=== PATIENT | male | born 1950 | race Caucasian/White ===

== ENCOUNTER 2017-07-31 16:04 | Emergency (ER) | payer MEDICARE, OTHER ==
[2017-07-31 16:21] VITALS: BP 165/81
[2017-07-31] MEDS ORDERED: METFORMIN HYD1000 MG PO (16:28)
[2017-07-31] MEDS ORDERED: GLUCOPHAGE PO (16:28)
[2017-07-31] MEDS ORDERED: LOSARTAN POTASS1 TA2 PO (16:29)
[2017-07-31] MEDS ORDERED: ATORVASTATIN CA20 MG PO (16:29)
[2017-07-31] MEDS ORDERED: ACETAMINOPHEN-H1 TA2 PO (16:30)
[2017-07-31] MEDS ORDERED: NAPROSYN500 M1 PO (16:30)
[2017-07-31] MEDS ORDERED: NAPROXEN500 MG PO (17:40)
== END 2017-07-31 17:50 | disposition home or self-care (01) ==
LOC: ED 16:04
DX: S92.322A Displaced fracture of second metatarsal bone, left foot, initial encounter for closed fracture (principal); S92.352A Displaced fracture of fifth metatarsal bone, left foot, initial encounter for closed fracture; W05.0XXA Fall from non-moving wheelchair, initial encounter; Y92.009 Unspecified place in unspecified non-institutional (private) residence as the place of occurrence of the external cause; G82.20 Paraplegia, unspecified; S24.102S Unspecified injury at T2-T6 level of thoracic spinal cord, sequela; Z99.3 Dependence on wheelchair; V29.9XXS Motorcycle rider (driver) (passenger) injured in unspecified traffic accident, sequela

== ENCOUNTER → 2021-01-31 | Outpatient (CLI) | payer MEDICARE ==
[~2021-01-31] MED LIST: ACETAMINOPHEN-H1 TA2 PO; ATORVASTATIN CA20 MG PO; GLUCOPHAGE PO; LOSARTAN POTASS1 TA2 PO; METFORMIN HYD1000 MG PO; NAPROSYN500 M1 PO; NAPROXEN500 MG PO
== END ==
LOC: RAD 01-30 08:30
DX: D64.9 Anemia, unspecified (principal); I74.5 Embolism and thrombosis of iliac artery; N40.0 Benign prostatic hyperplasia without lower urinary tract symptoms; S72.001A Fracture of unspecified part of neck of right femur, initial encounter for closed fracture; L89.899 Pressure ulcer of other site, unspecified stage
CPT/HCPCS: Q9967

== ENCOUNTER → 2021-02-10 | Outpatient (CLI) | payer MEDICARE ==
[2021-02-10 13:50] LABS: BASO # 0.02 (0.02-0.10); EOS # 0.41 (0.04-0.40); EOS % 3.8 % (0.0-4.0); HEMATOCRIT 31.8 % (42.0-52.0); HEMOGLOBIN 9.7 g/dL (13.5-18.0); LYMPH# 1.81 (1.50-4.00); MEAN CELL VOLUME 84 fl (78-100); MEAN CORPUSCULAR HEMOGLOBIN 26 pg (27-31); MEAN CORPUSCULAR HGB CONC 31 g/dL (33-37); MEAN PLATELET VOLUME 8.9 fl (7.4-10.4); MONO # 0.66 (0.20-0.80); NEU # 7.97 (1.40-6.50); PLATELET COUNT 450 K/mm3 (130-400); RED BLOOD COUNT 3.79 M/mm3 (4.20-5.60); RED CELL DISTRIBUTION WIDTH 16.9 % (11.5-14.5); WHITE BLOOD COUNT 10.9 K/mm3 (4.8-10.8)
[2021-02-10 13:57] LABS: ALBUMIN 3.1 g/dL (3.4-4.8)
[2021-02-10 13:58] LABS: CALCIUM 8.5 mg/dL (8.3-10.5)
[2021-02-10 14:00] LABS: TOTAL PROTEIN 6.2 g/dL (6.2-8.1)
[2021-02-10 14:02] LABS: TOTAL BILIRUBIN 0.4 mg/dL (0.2-1.2)
== END ==
LOC: LAB 13:31
PROVIDERS: Internal Medicine Infectious Disease
DX: M46.28 Osteomyelitis of vertebra, sacral and sacrococcygeal region (principal)

== ENCOUNTER → 2022-06-06 | Outpatient (CLI) | payer MEDICARE | LOC: LAB 18:43 | DX: S91.001A Unspecified open wound, right ankle, initial encounter (principal); X58.XXXA Exposure to other specified factors, initial encounter ==

== ENCOUNTER → 2022-07-29 | Outpatient (CLI) | payer MEDICARE | LOC: RAD 10:55 | DX: R09.89 Other specified symptoms and signs involving the circulatory and respiratory systems (principal); R60.0 Localized edema; M79.661 Pain in right lower leg ==

== ENCOUNTER → 2024-05-05 | Outpatient (CLI) | payer MEDICARE | LOC: LAB 14:57 | DX: I10 Essential (primary) hypertension (principal) ==

== ENCOUNTER → 2024-05-06 | Outpatient (CLI) | payer MEDICARE ==
[~2024-05-06] MED LIST changes: +Iohexol 300 - 100 ML VIAL IV ONE
== END ==
LOC: RAD 12:47
DX: L98.419 Non-pressure chronic ulcer of buttock with unspecified severity (principal); S72.91 Unspecified fracture of right femur; Z98.890 Other specified postprocedural states
CPT/HCPCS: Q9967